=== PATIENT | female | born 1990 | race African-American/Black ===

== ENCOUNTER 2017-04-19 20:25 | Emergency (ER) | payer SELFPAY ==
[~2017-04-19] VITALS: Ht 157.5 cm; Wt 63.5 kg
[~2017-04-19 20:25] MED LIST: CIPRO500 MG PO; DIFLUCAN100 MG ORAL; METRONIDAZOLE500 MG ORAL; NKM; ONDANSETRON ODT4 MG ORAL
[2017-04-19 21:00] VITALS: BP 104/63
--- NOTE | 2017-04-19 21:06 | Emergency Room Report ---
History of Present Illness General Chief Complaint: Female Urogenital Problems Source: Patient Present Illness HPI Patient is a 27-year-old female who presented after increased lower abdominal cramping as well as dysuria. Patient reported increased urinary frequency. Patient reports having increased foul odorous discharge. She denies any fever. She reports having no flank pain. had not been vomiting. She gradual onset of symptoms. Allergies: Coded Allergies: No Known Allergies (Unverified , 08/30/14) Patient History Past Medical History: see triage record Last Menstrual Period: last month Now: No Reviewed Nursing Documentation: PMH: Agreed, PSxH: Agreed Nursing Documentation-PM Past Medical History: No History, Except For Review of Systems All Other Systems: negative except mentioned in HPI Physical Exam Vital Signs Date Time Temp Pulse Resp B/P Pulse Ox O2 Delivery O2 Flow Rate FiO2 04/19/17 20:46 98.2 72 16 104/63 100 Room Air General Appearance: well appearing, no apparent distress, alert, GCS 15 Head: normocephalic, atraumatic ENT: hearing grossly normal, normal voice Neck: full range of motion, supple Respiratory: no respiratory distress, speaking full sentences Gastrointestinal: normal inspection, soft Musculoskeletal: no calf tenderness Neurologic: normal inspection, alert, oriented x3, responsive, archaeology professor III-XII nml as tested, normal gait Psychiatric: mood/affect normal Skin: no rash Medical Decision Making Diagnostic Impression: Primary Impression: UTI (urinary tract infection) Additional Impression: Vaginitis ER Course Patient presented for dysuria. Differential diagnosis included was not limited to appendicitis, urinary tract infection, pelvic inflammatory disease, urethritis, herpes among others.Because of complexity of patient's case laboratory testing were ordered.Urinalysis showed evidence of mild infection. Given the patient's symptomatology. She was treated with oral antibiotics as well as MetroGel. Patient is advised followup with her own physician for further evaluation testing. Labs Test 04/19/17 21:00 Urine Color Yellow Urine Appearance Clear Urine pH 7 (4.5-8.0) Urine Specific [place] 1.015 (1.005-1.035) Urine Protein Negative (NEGATIVE) Urine Glucose (UA) Negative (NEGATIVE) Urine Ketones 1+ (NEGATIVE) Urine Occult Blood Negative (NEGATIVE) Urine Nitrite Negative (NEGATIVE) Urine Bilirubin Negative (NEGATIVE) Urine Urobilinogen 1 MG/DL (0.0-1.0) Urine Leukocyte Esterase 1+ (NEGATIVE) Urine RBC 2-4 /HPF (0 - 2) Urine WBC 5-10 /HPF (0 - 2) Urine Squamous Epithelial Cells Many /LPF (NONE/OCC) Urine Bacteria Few /HPF (NONE) Urine HCG, Qualitative Negative Last Vital Signs Date Time Temp Pulse Resp B/P Pulse Ox O2 Delivery O2 Flow Rate FiO2 04/19/17 20:46 98.2 72 16 104/63 100 Room Air Status: improved Disposition: HOME, SELF-CARE Condition: Stable Scripts Metronidazole* (METROGEL-VAGINAL*) 70 Gm Gel.w.appl 1 APPL VAGIN EVERY 12 HOURS, #70 GM Prov: Abdirahman Fischer 04/19/17 Doxycycline Monohydrate* (DOXYCYCLINE MONOHYDRATE*) 100 Mg Capsule 100 MG ORAL Q12H, #14 CAP 0 Refills Prov: Abdirahman Fischer 04/19/17 Abdirahman Fischer Apr 19, 2017 21:06
[2017-04-19 21:47] LABS: APPEARANCE,URINE CLEAR; KETONES,URINE 1+ (NEGATIVE); LEUKOCYTE ESTERASE ,URINE 1+ (NEGATIVE); NITRITE,URINE NEGATIVE (NEGATIVE); PH,URINE 7 (4.5-8.0); PROTEIN,URINE NEGATIVE (NEGATIVE); UROBILINOGEN,URINE 1 MG/DL (0.0-1.0)
[2017-04-19] MEDS ORDERED: Lidocaine 1% MPF 10mg/ml 5ml INJ ONE (22:00)
[2017-04-19] MEDS ORDERED: DOXYCYCLINE MO100 MG ORAL (22:17)
[2017-04-19] MEDS ORDERED: METROGEL-VAGINA70 G1 VAGIN (22:17)
[2017-04-19 22:30] LABS: BACTERIA,URINE FEW /HPF; SQUAMOUS EPITHELIAL CELL,UR MANY /LPF (NONE/OCC)
[2017-04-19 22:50] VITALS: BP 108/65
== END 2017-04-19 22:50 | disposition home or self-care (01) ==
LOC: EMR 21:17
DX: N39.0 Urinary tract infection, site not specified (principal); N76.0 Acute vaginitis
CPT/HCPCS: 81003; 81025; 96372; 99284; J0696

== ENCOUNTER 2017-05-08 15:37 | Emergency (ER) | payer SELFPAY ==
[~2017-05-08] VITALS: Ht 157.5 cm; Wt 63.5 kg
[~2017-05-08 15:37] MED LIST changes: +DOXYCYCLINE MO100 MG ORAL; +METROGEL-VAGINA70 G1 VAGIN
[2017-05-08 15:46] VITALS: BP 125/74
[2017-05-08] MEDS ORDERED: Famotidine 20 MG/ 2ML VIAL IVP ONE (16:15)
[2017-05-08 16:26] LABS: BASOPHILS % (AUTO) 1.4 % (0.0-2.0); EOSINOPHILS % (AUTO) 1.4 % (0.0-3.0); LYMPHOCYTES % (AUTO) 40.2 % (20.0-45.0); MEAN CORPUSCULAR HGB CONC 31.5 G/DL (32.0-36.0); MEAN CORPUSCULAR VOLUME 83 FL (80-99); MEAN PLATELET VOLUME 6.1 FL (6.5-10.1); PLATELET COUNT 300 K/UL (150-450); RED CELL DISTRIBUTION WIDTH 12.1 % (11.6-14.8); WHITE BLOOD COUNT 4.9 K/UL (4.8-10.8)
[2017-05-08 16:30] LABS: APPEARANCE,URINE CLEAR; KETONES,URINE NEGATIVE (NEGATIVE); LEUKOCYTE ESTERASE ,URINE 1+ (NEGATIVE); NITRITE,URINE NEGATIVE (NEGATIVE); PH,URINE 8 (4.5-8.0); PROTEIN,URINE NEGATIVE (NEGATIVE); UROBILINOGEN,URINE NORMAL MG/DL (0.0-1.0)
[2017-05-08 16:44] LABS: ALANINE AMINOTRANSFERASE 24 U/L (3-33); ALBUMIN/GLOBULIN RATIO 1.6 (1.0-2.7); ANION GAP 11 (5-15); ASPARTATE AMINO TRANSFERASE 25 U/L (5-40); CALCIUM 9.3 mg/dL (8.6-10.2); CARBON DIOXIDE 27 mEQ/L (20-30); CHLORIDE 100 mEQ/L (98-107); CREATININE 0.8 mg/dL (0.5-0.9); GLOMERULAR FILTRATION RATE > 60 mL/min (>60); HEMOLYSIS 3; LIPASE 32 U/L (< 60); POTASSIUM 3.6 mEQ/L (3.4-4.9); SODIUM 138 mEQ/L (135-145); TOTAL PROTEIN 7.8 g/dL (6.6-8.7)
[2017-05-08 17:04] LABS: RBC,URINE 0-2 /HPF (0 - 2)
[2017-05-08 17:05] LABS: BACTERIA,URINE FEW /HPF; SQUAMOUS EPITHELIAL CELL,UR FEW /LPF (NONE/OCC)
[2017-05-08] MEDS ORDERED: CIPROFLOXACIN500 M2 ORAL (17:41)
[2017-05-08] MEDS ORDERED: ZOFRAN ODT4 MG ORAL (17:41)
[2017-05-08] MEDS ORDERED: RANITIDINE HCL150 MG ORAL (17:41)
--- NOTE | 2017-05-08 18:41 | Emergency Room Report ---
History of Present Illness General Chief Complaint: Nausea, Vomiting, and Diarrhea Source: Patient Present Illness HPI 27-year-old female presents ED complaining of lower abdominal pain with vomiting and diarrhea. Notes having the diarrhea for the last 6 weeks on and off. Patient denies any recent travel. States that she recently was prescribed antibiotics for UTI. Denies fevers chills. Pain is cramping, 8/10, nonradiating. No other aggravating or leading factors. Denies any other associated symptoms Allergies: Coded Allergies: No Known Allergies (Unverified , 08/30/14) Patient History Past Medical History: none Past Surgical History: none Pertinent Family History: none Social History: Denies: alcohol use, drug use, smoking Last Menstrual Period: 04/19/17 Now: No Immunizations: UTD Reviewed Nursing Documentation: PMH: Agreed, PSxH: Agreed Nursing Documentation-PMH Past Medical History: No Stated History Review of Systems All Other Systems: negative except mentioned in HPI Physical Exam Vital Signs Date Time Temp Pulse Resp B/P Pulse Ox O2 Delivery O2 Flow Rate FiO2 05/08/17 15:40 97.5 67 14 125/74 99 Room Air Sp02 EP Interpretation: reviewed, normal General Appearance: no apparent distress, alert, GCS 15, non-toxic Head: normocephalic, atraumatic Eyes: bilateral eye PERRL, bilateral eye normal inspection ENT: hearing grossly normal, normal pharynx, no angioedema, normal voice Neck: full range of motion, supple/symm/no masses Respiratory: chest non-tender, lungs clear, normal breath sounds, speaking full sentences Cardiovascular #1: regular rate, rhythm, no edema Cardiovascular #2: 2+ carotid (R), 2+ carotid (L), 2+ radial (R), 2+ radial (L) , 2+ dorsalis pedis (R), 2+ dorsalis pedis (L) Gastrointestinal: normal bowel sounds, non tender, soft, non-distended, no guarding, no rebound Rectal: deferred Genitourinary: normal inspection, no CVA tenderness Musculoskeletal: back normal, gait/station normal, normal range of motion, non- tender Neurologic: alert, oriented x3, responsive, motor strength/tone normal, sensory intact, speech normal Psychiatric: judgement/insight normal, memory normal, mood/affect normal, no suicidal/homicidal ideation Reflexes: 3+ bicep (R), 3+ bicep (L), 3+ tricep (R), 3+ tricep (L), 3+ knee (R) , 3+ knee (L) Skin: normal color, no rash, warm/dry, well hydrated Lymphatic: no adenopathy Medical Decision Making Diagnostic Impression: Primary Impression: Gastroenteritis and colitis, viral ER Course Hospital Course 27-year-old F presents to ED with cramping abdominal pain with vomiting, diarrhea differential diagnosis: gastritis, SBO, cholecystits, gastroenteritis Clinical course Patient placed on stretcher. On cardiac cath tech. After initial history and physical I ordered labs, IV fluids, Zofran and pepcid Labs - no leukocytosis, electrolytes ok, LFTs normal, UA unremarkable Upon reassessment, patient states pain has improved. findings consistent with gastroenteritis. Given symptoms persisting for 6 weeks with recent antibiotic use, we will prescribe cipro I feel this is a highly complex case requiring extensive working including EKG/ Rhythm strip, Xray/CT/US, Blood/urine lab work, repeat exams while in ED, and administration of strong opiates/narcotics for pain control, admission to hospital or close patient follow up. Diagnosis - gastroenteritis and colitis Stable and discharged to home with prescriptions for Zantac, zofran, Cipro. Followup with PMD. Return to ED if symptoms recur or worsen Labs Test 05/08/17 16:07 White Blood Count 4.9 K/UL (4.8-10.8) Red Blood Count 4.90 M/UL (4.20-5.40) Hemoglobin 12.7 G/DL (12.0-16.0) Hematocrit 40.5 % (37.0-47.0) Mean Corpuscular Volume 83 FL (80-99) Mean Corpuscular Hemoglobin 26.0 PG (27.0-31.0) Mean Corpuscular Hemoglobin Concent 31.5 G/DL (32.0-36.0) Red Cell Distribution Width 12.1 % (11.6-14.8) Platelet Count 300 K/UL (150-450) Mean Platelet Volume 6.1 FL (6.5-10.1) Neutrophils (%) (Auto) 51.0 % (45.0-75.0) Lymphocytes (%) (Auto) 40.2 % (20.0-45.0) Monocytes (%) (Auto) 6.0 % (1.0-10.0) Eosinophils (%) (Auto) 1.4 % (0.0-3.0) Basophils (%) (Auto) 1.4 % (0.0-2.0) Urine Color Pale yellow Urine Appearance Clear Urine pH 8 (4.5-8.0) Urine Specific [place] 1.010 (1.005-1.035) Urine Protein Negative (NEGATIVE) Urine Glucose (UA) Negative (NEGATIVE) Urine Ketones Negative (NEGATIVE) Urine Occult Blood Negative (NEGATIVE) Urine Nitrite Negative (NEGATIVE) Urine Bilirubin Negative (NEGATIVE) Urine Urobilinogen Normal MG/DL (0.0-1.0) Urine Leukocyte Esterase 1+ (NEGATIVE) Urine RBC 0-2 /HPF (0 - 2) Urine WBC 2-4 /HPF (0 - 2) Urine Squamous Epithelial Cells Few /LPF (NONE/OCC) Urine Bacteria Few /HPF (NONE) Urine HCG, Qualitative Negative Sodium Level 138 mEQ/L (135-145) Potassium Level 3.6 mEQ/L (3.4-4.9) Chloride Level 100 mEQ/L (98-107) Carbon Dioxide Level 27 mEQ/L (20-30) Anion Gap 11 (5-15) Blood Urea Nitrogen 14 mg/dL (7-23) Creatinine 0.8 mg/dL (0.5-0.9) Estimat Glomerular Filtration Rate > 60 mL/min (>60) Glucose Level 85 mg/dL (74-106) Calcium Level 9.3 mg/dL (8.6-10.2) Total Bilirubin 0.7 mg/dL (0.0-1.2) Aspartate Amino Transf (AST/SGOT) 25 U/L (5-40) Alanine Aminotransferase (ALT/SGPT) 24 U/L (3-33) Alkaline Phosphatase 38 U/L (35-104) Total Protein 7.8 g/dL (6.6-8.7) Albumin 4.8 g/dL (3.5-5.2) Globulin 3.0 g/dL Albumin/Globulin Ratio 1.6 (1.0-2.7) Lipase 32 U/L (< 60) Last Vital Signs Date Time Temp Pulse Resp B/P Pulse Ox O2 Delivery O2 Flow Rate FiO2 05/08/17 15:46 97.5 14 125/74 99 Room Air 05/08/17 15:40 67 Status: improved Disposition: HOME, SELF-CARE Condition: Stable Scripts Ciprofloxacin Hcl* (CIPROFLOXACIN HCL*) 500 Mg Tablet 500 MG ORAL Q12H, #14 TAB 0 Refills Prov: YULIA JAIMES M.D. 05/08/17 Ondansetron Odt* (ZOFRAN ODT*) 4 Mg Tab.rapdis 4 MG ORAL Q6H Y for Nausea & Vomiting, #30 TAB 0 Refills Prov: YULIA JAIMES M.D. 05/08/17 Ranitidine Hcl* (ZANTAC*) 150 Mg Tablet 150 MG ORAL TWICE A DAY, #30 TAB Prov: YULIA JAIMES M.D. 05/08/17 Patient Instructions: Colitis YULIA JAIMES M.D. May 08, 2017 18:41
[2017-05-08 18:55] VITALS: BP 128/75
[2017-05-08 18:56] VITALS: BP 125/74
== END 2017-05-08 18:59 | disposition home or self-care (01) ==
LOC: EMR 16:12
DX: K52.9 Noninfective gastroenteritis and colitis, unspecified (principal)
CPT/HCPCS: 36415; 80053; 81003; 81025; 83690; 85025; 96374; 96375; 99284; J2405; S0028

== ENCOUNTER 2017-07-18 20:08 | Emergency (ER) | payer SELFPAY ==
[~2017-07-18] VITALS: Ht 157.5 cm; Wt 63.5 kg
[~2017-07-18 20:08] MED LIST changes: +CIPROFLOXACIN500 M2 ORAL; +RANITIDINE HCL150 MG ORAL; +ZOFRAN ODT4 MG ORAL
[2017-07-18 20:40] LABS: APPEARANCE,URINE CLEAR; KETONES,URINE 2+ (NEGATIVE); LEUKOCYTE ESTERASE ,URINE 2+ (NEGATIVE); NITRITE,URINE NEGATIVE (NEGATIVE); PH,URINE 6 (4.5-8.0); PROTEIN,URINE NEGATIVE (NEGATIVE); UROBILINOGEN,URINE NORMAL MG/DL (0.0-1.0)
--- NOTE | 2017-07-18 20:48 | Emergency Room Report ---
History of Present Illness General Chief Complaint: Abdominal Pain Source: Patient Present Illness HPI 27YOF with suprapubic pain and dysuria for 2 weeks. Denies fever/chills, flank pain, nausea/vomiting, previous abd/pelvic surgery. C/o white vaginal discharge has one sexual partner Has had BV before - feels similar. Improved with PO flagyl Allergies: Coded Allergies: No Known Allergies (Unverified , 08/30/14) Patient History Past Medical History: none, other - BV Past Surgical History: none Pertinent Family History: none Social History: Denies: smoking, alcohol use, drug use Last Menstrual Period: jun 20 Now: No : 2 Immunizations: UTD Reviewed Nursing Documentation: PMH: Agreed, PSxH: Agreed Nursing Documentation-PMH Past Medical History: No Stated History Review of Systems All Other Systems: negative except mentioned in HPI Physical Exam Vital Signs Date Time Temp Pulse Resp B/P (MAP) Pulse Ox O2 Delivery O2 Flow Rate FiO2 07/18/17 20:10 97.9 69 18 104/66 98 Room Air Sp02 EP Interpretation: reviewed, normal General Appearance: normal inspection, well appearing, no apparent distress, alert, GCS 15, non-toxic Head: normocephalic, atraumatic Eyes: bilateral eye PERRL, bilateral eye EOMI ENT: normal ENT inspection, hearing grossly normal, normal pharynx, no angioedema, normal voice Neck: normal inspection, full range of motion, supple, no bony tend Respiratory: normal inspection, lungs clear, normal breath sounds, no respiratory distress, no retraction, no wheezing Cardiovascular #1: regular rate, rhythm, no edema Gastrointestinal: normal inspection, normal bowel sounds, non tender, soft, no guarding, no hernia Genitourinary: no CVA tenderness, other - pelvi done with DOT Yang. White discharge. Not foul smelling. Musculoskeletal: normal inspection, back normal, normal range of motion, Miguelina' s Sign negative Neurologic: normal inspection, alert, responsive, speech normal Psychiatric: normal inspection, judgement/insight normal, mood/affect normal Skin: normal inspection, normal color, no rash Medical Decision Making Diagnostic Impression: Primary Impression: Dysuria Additional Impression: Sore throat ER Course Urine preg negative UA: With squams and bacteria, likely BV vs UTI Abx Flagyl given Urine Cx negative DC home Last Vital Signs Date Time Temp Pulse Resp B/P (MAP) Pulse Ox O2 Delivery O2 Flow Rate FiO2 07/18/17 20:10 97.9 69 18 104/66 98 Room Air Status: improved Disposition: HOME, SELF-CARE Scripts Metronidazole* (FLAGYL*) 500 Mg Tablet 500 MG ORAL TID for 7 Days, #21 TAB Prov: RANDY BOOKER M.D. 07/18/17 Nitrofurantoin Monohyd/M-Cryst* (MACROBID 100 MG*) 100 Mg Capsule 100 MG ORAL EVERY 12 HOURS for 7 Days, #14 CAP Prov: RANDY BOOKER M.D. 07/18/17 RANDY BOOKER M.D. Jul 18, 2017 20:48
[2017-07-18 20:51] LABS: AMORPHOUS SEDIMENT,UR FEW /LPF; BACTERIA,URINE MODERATE /HPF; SQUAMOUS EPITHELIAL CELL,UR MODERATE /LPF (NONE/OCC)
[2017-07-18] MEDS ORDERED: NITROFURANTOIN100 M2 ORAL (21:05)
[2017-07-18] MEDS ORDERED: METRONIDAZOLE500 MG ORAL (21:21)
[2017-07-18 22:01] VITALS: BP 104/66
== END 2017-07-18 22:04 | disposition home or self-care (01) ==
LOC: EMR 20:53
DX: R30.0 Dysuria (principal); J02.9 Acute pharyngitis, unspecified
CPT/HCPCS: 81003; 81025; 87086; 99283

== ENCOUNTER 2017-12-03 15:04 | Emergency (ER) | payer SELFPAY ==
[~2017-12-03] VITALS: Ht 157.5 cm; Wt 63.5 kg
[~2017-12-03 15:04] MED LIST changes: +NITROFURANTOIN100 M2 ORAL
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
[2017-12-03 15:25] VITALS: BP 118/61
[2017-12-03 15:37] LABS: APPEARANCE,URINE CLEAR; BILIRUBIN, URINE NEGATIVE (NEGATIVE); GLUCOSE, URINE (UA) NEGATIVE (NEGATIVE); KETONES,URINE NEGATIVE (NEGATIVE); LEUKOCYTE ESTERASE ,URINE 1+ (NEGATIVE); NITRITE,URINE NEGATIVE (NEGATIVE); PH,URINE 6 (4.5-8.0); PROTEIN,URINE NEGATIVE (NEGATIVE); UROBILINOGEN,URINE NORMAL MG/DL (0.0-1.0)
[2017-12-03 15:38] LABS: COLOR,URINE YELLOW
[2017-12-03] MEDS ORDERED: METHOCARBAMOL500 MG ORAL (15:43)
[2017-12-03] MEDS ORDERED: TYLENOL EXTRA500 MG ORAL (15:43)
[2017-12-03 16:01] VITALS: BP 118/61
== END 2017-12-03 16:00 | disposition home or self-care (01) ==
LOC: EMR 15:50
DX: M54.5 Low back pain (principal); V49.50XA Passenger injured in collision with unspecified motor vehicles in traffic accident, initial encounter; Y92.410 Unspecified street and highway as the place of occurrence of the external cause
CPT/HCPCS: 81003; 99284

== ENCOUNTER 2019-07-08 19:21 | Emergency (ER) | payer BC ==
[~2019-07-08] VITALS: Ht 157.5 cm; Wt 77.1 kg
[~2019-07-08 19:21] MED LIST changes: +METHOCARBAMOL500 MG ORAL; +TYLENOL EXTRA500 MG ORAL
[2019-07-08 19:30] VITALS: BP 126/72
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
[2019-07-08] MEDS ORDERED: Acetaminophen 500mg (ES) tab ORAL ONE (19:45)
--- NOTE | 2019-07-08 19:52 | NUR ---
ED Nurse Note: urine sample and blood sample sent to lab
[2019-07-08 19:55] LABS: BASOPHILS % (AUTO) 1.3 % (0.0-2.0); EOSINOPHILS % (AUTO) 0.4 % (0.0-3.0); HEMATOCRIT 42.5 % (37.0-47.0); HEMOGLOBIN 13.3 G/DL (12.0-16.0); LYMPHOCYTES % (AUTO) 40.8 % (20.0-45.0); MEAN CORPUSCULAR VOLUME 79 FL (80-99); MONOCYTES % (AUTO) 8.7 % (1.0-10.0); NEUTROPHILS % (AUTO) 48.8 % (45.0-75.0); PLATELET COUNT 301 K/UL (150-450); RED CELL DISTRIBUTION WIDTH 10.7 % (11.6-14.8); WHITE BLOOD COUNT 6.1 K/UL (4.8-10.8)
--- NOTE | 2019-07-08 19:56 | Emergency Room Report ---
History of Present Illness General Chief Complaint: Back Pain-No Injury Source: Patient Present Illness HPI 29-year-old female G4 A3, 8 weeks presents with right flank pain described as achy that radiates down her right leg x5 days no fever no chills no dysuria, aggravated with movement alleviated with rest, severity is mild intermittent, patient denies any vaginal bleeding. Patient presents for evaluation No bowel bladder retention/incontinence, no perineal numbness Allergies: Coded Allergies: No Known Allergies (Unverified , 08/30/14) Patient History Past Medical History: see triage record Last Menstrual Period: 05/18/19 Now: Yes : 3 Reviewed Nursing Documentation: PMH: Agreed; PSxH: Agreed Nursing Documentation-PMH Past Medical History: No Stated History Review of Systems All Other Systems: negative except mentioned in HPI Physical Exam Vital Signs Date Time Temp Pulse Resp B/P (MAP) Pulse Ox O2 Delivery O2 Flow Rate FiO2 07/08/19 19:23 98.2 83 17 121/72 (88) 98 Room Air Sp02 EP Interpretation: reviewed, normal General Appearance: well appearing, no apparent distress, alert Head: normocephalic, atraumatic Eyes: bilateral eye PERRL, bilateral eye EOMI ENT: uvula midline, moist mucus membranes Neck: supple, thyroid normal, supple/symm/no masses Respiratory: lungs clear, no respiratory distress, no retraction, no accessory muscle use Cardiovascular #1: normal peripheral pulses, regular rate, rhythm, no edema, no gallop, no murmur Gastrointestinal: non tender, soft, no guarding, no rebound Musculoskeletal: normal inspection, other - Right flank tender to palpation, no CVA tenderness Neurologic: alert, oriented x3 Psychiatric: mood/affect normal Skin: no rash, warm/dry Medical Decision Making Diagnostic Impression: Primary Impression: Back pain Qualified Codes: M54.41 - Lumbago with sciatica, right side Additional Impressions: UTI (urinary tract infection) Qualified Codes: N30.00 - Acute cystitis without hematuria Qualified Codes: Z3A.01 - Less than 8 weeks gestation of ER Course 29-year-old female presents with right flank pain, most likely musculoskeletal, no fever no chills no dysuria, low suspicion for pyelonephritis, no CVA tenderness when tapped. Patient with a single IUP no acute processes on ultrasound Will provide patient with antibiotics here and antibiotics on discharge Patient states she will follow-up with an [facility] Return precautions discussed Laboratory Tests Test 07/08/19 19:40 White Blood Count 6.1 K/UL (4.8-10.8) Red Blood Count 5.40 M/UL (4.20-5.40) Hemoglobin 13.3 G/DL (12.0-16.0) Hematocrit 42.5 % (37.0-47.0) Mean Corpuscular Volume 79 FL (80-99) L Mean Corpuscular Hemoglobin 24.7 PG (27.0-31.0) L Mean Corpuscular Hemoglobin Concent 31.3 G/DL (32.0-36.0) L Red Cell Distribution Width 10.7 % (11.6-14.8) L Platelet Count 301 K/UL (150-450) Mean Platelet Volume 5.8 FL (6.5-10.1) L Neutrophils (%) (Auto) 48.8 % (45.0-75.0) Lymphocytes (%) (Auto) 40.8 % (20.0-45.0) Monocytes (%) (Auto) 8.7 % (1.0-10.0) Eosinophils (%) (Auto) 0.4 % (0.0-3.0) Basophils (%) (Auto) 1.3 % (0.0-2.0) Urine Color Yellow Urine Appearance Cloudy Urine pH 6 (4.5-8.0) Urine Specific [place] 1.015 (1.005-1.035) Urine Protein Negative (NEGATIVE) Urine Glucose (UA) Negative (NEGATIVE) Urine Ketones 2+ (NEGATIVE) H Urine Blood 1+ (NEGATIVE) H Urine Nitrite Positive (NEGATIVE) H Urine Bilirubin Negative (NEGATIVE) Urine Urobilinogen Normal MG/DL (0.0-1.0) Urine Leukocyte Esterase 1+ (NEGATIVE) H Urine RBC 2-4 /HPF (0 - 2) H Urine WBC 5-10 /HPF (0 - 2) H Urine Squamous Epithelial Cells Many /LPF (NONE/OCC) H Urine Bacteria Many /HPF (NONE) H Sodium Level 134 MMOL/L (136-145) L Potassium Level 3.4 MMOL/L (3.5-5.1) L Chloride Level 101 MMOL/L (98-107) Carbon Dioxide Level 23 MMOL/L (21-32) Anion Gap 10 mmol/L (5-15) Blood Urea Nitrogen 9 mg/dL (7-18) Creatinine 0.7 MG/DL (0.55-1.30) Estimate Glomerular Filtration Rate > 60 mL/min (>60) Glucose Level 91 MG/DL (74-106) Calcium Level 9.2 MG/DL (8.5-10.1) Total Bilirubin 0.6 MG/DL (0.2-1.0) Aspartate Amino Transferase (AST) 24 U/L (15-37) Alanine Aminotransferase (ALT) 32 U/L (12-78) Alkaline Phosphatase 45 U/L (46-116) L Total Protein 8.3 G/DL (6.4-8.2) H Albumin 4.4 G/DL (3.4-5.0) Globulin 3.9 g/dL Albumin/Globulin Ratio 1.1 (1.0-2.7) Lipase 141 U/L (73-393) Human Chorionic Gonadotropin, Quant 00064 mIU/mL (1-6) H Urine Opiates Screen Negative (NEGATIVE) Urine Barbiturates Screen Negative (NEGATIVE) Phencyclidine (PCP) Screen Negative (NEGATIVE) Urine Amphetamines Screen Negative (NEGATIVE) Urine Benzodiazepines Screen Negative (NEGATIVE) Urine Cocaine Screen Negative (NEGATIVE) Urine Marijuana (THC) Screen Positive (NEGATIVE) H CT/MRI/US Diagnostic Results CT/MRI/US Diagnostic Results : Impression Ultrasound pelvis: Single IUP 6 weeks, heart rate 150 Procedure: US OB 1st Trimester Indication: Pelvic pain, positive test Technique: Transabdominal and transvaginal images of the pelvis. Doppler interrogation of the ovaries Comparison: 01/26/2017 Findings: Uterus measures 9.3 cm length by 5.2 cm AP. Within the endometrium, there is a gestational sac. This demonstrates a yolk sac. There is a pole, demonstrating positive heart activity with a heart rate of 150 bpm. [place]- rump length is 5 mm, corresponding to an estimated gestational age of 6 weeks 2 days. There is some heterogeneity to the adjacent endometrium in the lower uterine segment without discrete focal abnormality. The right ovary measures 3.5 cm length. The left ovary measures 2.7 cm length. Normal blood flow demonstrated on Doppler imaging. No ovarian or adnexal mass demonstrated. No free cul-de-sac fluid Impression: 6 week 2 day, by crown-rump length measurement, single live intrauterine . Slightly heterogeneous adjacent echogenicity of doubtful significance. No unusual features otherwise This agrees with the preliminary interpretation provided overnight by Dr. Jack Dictated By: López Mireles MD Electronically Signed By: López Mireles MD Signed Date/Time 07/09/19 1203 CC: Sarabjit Jackson MD Last Vital Signs Date Time Temp Pulse Resp B/P (MAP) Pulse Ox O2 Delivery O2 Flow Rate FiO2 07/08/19 19:23 98.2 83 17 121/72 (88) 98 Room Air Disposition: HOME, SELF-CARE Condition: Stable Scripts Cephalexin* (CEPHALEXIN*) 500 Mg Tablet 500 MG ORAL EVERY 6 HOURS for 10 Days, #40 CAP Prov: Sarabjit Jackson MD 07/08/19 Referrals: [facility] Patient Instructions: Abdominal Pain During , [id number], Back Pain , Adult, Urinary Tract Infection, [id number] Additional Instructions: The patient was provided with discharge instructions, notified to follow-up with a primary care doctor and or specialist in the next 24-48 hours, and to return to the ED if they have worsening of their symptoms. Please note that this report is being documented using B[employer] technology. This can lead to erroneous entry secondary to incorrect interpretation by the dictating instrument. Sarabjit Jackson MD Jul 08, 2019 19:56
--- NOTE | 2019-07-08 19:58 | NUR ---
ED Nurse Note: pt went down for Ultrasound
[2019-07-08 20:10] LABS: ANION GAP 10 mmol/L (5-15); BLOOD UREA NITROGEN 9 mg/dL (7-18); CALCIUM 9.2 MG/DL (8.5-10.1); CARBON DIOXIDE 23 MMOL/L (21-32); CHLORIDE 101 MMOL/L (98-107); CREATININE 0.7 MG/DL (0.55-1.30); POTASSIUM 3.4 MMOL/L (3.5-5.1); SODIUM 134 MMOL/L (136-145)
[2019-07-08 20:11] LABS: COLOR,URINE YELLOW
[2019-07-08 20:12] LABS: APPEARANCE,URINE CLOUDY; BILIRUBIN, URINE NEGATIVE (NEGATIVE); GLUCOSE, URINE (UA) NEGATIVE (NEGATIVE); KETONES,URINE 2+ (NEGATIVE); LEUKOCYTE ESTERASE ,URINE 1+ (NEGATIVE); NITRITE,URINE POSITIVE (NEGATIVE); PH,URINE 6 (4.5-8.0); PROTEIN,URINE NEGATIVE (NEGATIVE); UROBILINOGEN,URINE NORMAL MG/DL (0.0-1.0)
[2019-07-08 20:16] LABS: ALANINE AMINOTRANSFERASE 32 U/L (12-78); ALBUMIN 4.4 G/DL (3.4-5.0); ALBUMIN/GLOBULIN RATIO 1.1 (1.0-2.7); ALKALINE PHOSPHATASE 45 U/L (46-116); ASPARTATE AMINO TRANSFERASE 24 U/L (15-37); BILIRUBIN,TOTAL 0.6 MG/DL (0.2-1.0)
[2019-07-08] MEDS ORDERED: CEPHALEXIN500 M1 ORAL (20:36)
[2019-07-08] MEDS ORDERED: cefTRIAXone 1 GM in NS 55 ML IVPB ONE (20:45)
--- NOTE | 2019-07-08 21:00 | NUR ---
ED Nurse Note: returned back from US
[2019-07-08 21:20] VITALS: BP 130/72
--- NOTE | 2019-07-08 21:20 | NUR ---
ER DISCHARGE NOTE: Patient is cleared to be discharged per ERMD, pt is aox4, on room air, with stable vital signs. pt was given dc and prescription instructions, pt was able to verbalize understanding, pt id band and iv site removed without complications. pt is able to ambulate with steady gait. pt took all belongings.
--- NOTE | 2019-07-09 12:09 | Diagnostic Imaging Report ---
Indication: Pelvic pain, positive test Technique: Transabdominal and transvaginal images of the pelvis. Doppler interrogation of the ovaries Comparison: 01/26/2017 Findings: Uterus measures 9.3 cm length by 5.2 cm AP. Within the endometrium, there is a gestational sac. This demonstrates a yolk sac. There is a pole, demonstrating positive heart activity with a heart rate of 150 bpm. [place]-rump length is 5 mm, corresponding to an estimated gestational age of 6 weeks 2 days. There is some heterogeneity to the adjacent endometrium in the lower uterine segment without discrete focal abnormality. The right ovary measures 3.5 cm length. The left ovary measures 2.7 cm length. Normal blood flow demonstrated on Doppler imaging. No ovarian or adnexal mass demonstrated. No free cul-de-sac fluid Impression: 6 week 2 day, by crown-rump length measurement, single live intrauterine . Slightly heterogeneous adjacent echogenicity of doubtful significance. No unusual features otherwise This agrees with the preliminary interpretation provided overnight by Dr. Jack
== END 2019-07-08 21:20 | disposition home or self-care (01) ==
LOC: EMR 20:40
DX: O26.891 Other specified pregnancy related conditions, first trimester (principal); M54.41 Lumbago with sciatica, right side; O23.11 Infections of bladder in pregnancy, first trimester; Z3A.01 Less than 8 weeks gestation of pregnancy
CPT/HCPCS: 36415; 76801; 76830; 80053; 80307; 81003; 83690; 84702; 85025; 86850; 86900; 86901; 87086; 96365; 99284; J0696

== ENCOUNTER 2019-08-01 15:11 | Emergency (ER) | payer BC ==
[~2019-08-01] VITALS: Ht 157.5 cm; Wt 70.8 kg
[~2019-08-01 15:11] MED LIST changes: +CEPHALEXIN500 M1 ORAL
--- NOTE | 2019-08-01 15:20 | NUR ---
ED Nurse Note: Patient walked into ED from home c/o spotting of pinkish light red blood, small amount since this morning. patient reports she is 10 weeks . patient reports backache, denies abdominal cramping. patient reports 4 para 0.
--- NOTE | 2019-08-01 15:59 | Emergency Room Report ---
History of Present Illness General Chief Complaint: Complications Source: Patient Present Illness HPI 29-year-old female who is G4 83 here complaining of 1 day of vaginal spotting. Patient reports that she is 10 weeks and last OB visit was a week ago and within normal limits. Patient is currently taking vitamins. Patient was recently seen at [facility] for similar issue on July 08, 2019, was diagnosed with urinary tract infection, and given Keflex. However patient reports that she did not want to take medication 4 times a day and she skipped some doses and has not yet finished antibiotics. Patient reports that she started wiping herself this morning where she saw spotting noted on the toilet paper however no active bleeding or clotting. Denies any cramping, syncope, chest pain, shortness of breath, palpitation, fever and chills, and excess nausea and vomiting. Has not taken any medication for symptom relief. Patient has only been taking Tylenol for back pain the past few days. Denies any fall or injury or strenuous physical activity. Patient sitting comfortably with stable vital signs. Reports that the last 3 abortions were selected and all under 10 weeks. Last was done 2-1/2 years ago. Patient denies smoking , marijuana use, alcohol intake. Allergies: Coded Allergies: No Known Allergies (Unverified , 08/30/14) Patient History Past Medical History: see triage record Past Surgical History: unable to obtain Pertinent Family History: none Now: Yes - 10 weeks Immunizations: UTD Reviewed Nursing Documentation: PMH: Agreed; PSxH: Agreed Nursing Documentation-PMH Past Medical History: No History, Except For Review of Systems All Other Systems: negative except mentioned in HPI Physical Exam Vital Signs Date Time Temp Pulse Resp B/P (MAP) Pulse Ox O2 Delivery O2 Flow Rate FiO2 08/01/19 15:16 97.9 83 17 115/75 (88) 98 Room Air Sp02 EP Interpretation: reviewed, normal General Appearance: no apparent distress, alert, GCS 15, non-toxic Head: normocephalic, atraumatic Eyes: bilateral eye normal inspection, bilateral eye PERRL ENT: hearing grossly normal, normal pharynx, no angioedema, normal voice, TMs + canals normal Neck: full range of motion, supple, thyroid normal, supple/symm/no masses Respiratory: chest non-tender, lungs clear, normal breath sounds, no rhonchi, no wheezing, speaking full sentences Cardiovascular #1: regular rate, rhythm, no edema, no murmur, normal capillary refill Cardiovascular #2: 2+ radial (R), 2+ radial (L), 2+ dorsalis pedis (R), 2+ dorsalis pedis (L) Gastrointestinal: normal bowel sounds, non tender, soft, non-distended, no guarding, no rebound Genitourinary: no CVA tenderness Musculoskeletal: back normal, gait/station normal, normal range of motion, non- tender, no calf tenderness Neurologic: alert, oriented x3, responsive, motor strength/tone normal, sensory intact, speech normal Psychiatric: judgement/insight normal, memory normal, mood/affect normal, no suicidal/homicidal ideation Skin: no rash Lymphatic: no adenopathy Medical Decision Making PA Attestation All diagnoses and treatment plans were reviewed and discussed with my supervising physician Dr. Perez Diagnostic Impression: Primary Impression: Vaginal bleeding during Additional Impression: UTI (urinary tract infection) during ER Course 29-year-old female who is G4 83 here complaining of 1 day of vaginal spotting. Patient reports that she is 10 weeks and last OB visit was a week ago and within normal limits. Patient is currently taking vitamins. Patient was recently seen at [facility] for similar issue on July 08, 2019, was diagnosed with urinary tract infection, and given Keflex. However patient reports that she did not want to take medication 4 times a day and she skipped some doses and has not yet finished antibiotics. Patient reports that she started wiping herself this morning where she saw spotting noted on the toilet paper however no active bleeding or clotting. Denies any cramping, syncope, chest pain, shortness of breath, palpitation, fever and chills, and excess nausea and vomiting. Has not taken any medication for symptom relief. Patient has only been taking Tylenol for back pain the past few days. Denies any fall or injury or strenuous physical activity. Patient sitting comfortably with stable vital signs. Reports that the last 3 abortions were selected and all under 10 weeks. Last was done 2-1/2 years ago. Patient denies smoking , marijuana use, alcohol intake. Ddx considered but are not limited to: Threatened , spontaneous , complete , sweating during , abdominal pain during , pyelonephritis Vital signs: are WNL, pt. is afebrile H&PE are most consistent with: UTI during , vag bleeding during ORDERS: CBC, CMP, UA, beta-hCG, type and screen, OB ultrasound ED INTERVENTIONS: NS bolus DISCHARGE: At this time pt. is stable for d/c to home. Will provide printed patient care instructions, and any necessary prescriptions. Care plan and follow up instructions have been discussed with the patient prior to discharge. Follow-up with your SPIRAL GEAR GENERATOR in 24 to 48 hours for repeat of ultrasound and beta hCG levels if worsening symptoms return to the emergency room. CT/MRI/US Diagnostic Results CT/MRI/US Diagnostic Results : Imaging Test Ordered: OB ultrasound Impression Within normal limits, heart rate 150, no subchorionic hemorrhage, intrauterine visualized, Last Vital Signs Date Time Temp Pulse Resp B/P (MAP) Pulse Ox O2 Delivery O2 Flow Rate FiO2 08/01/19 15:16 97.9 83 17 115/75 (88) 98 Room Air Disposition: HOME, SELF-CARE Condition: Stable Patient Instructions: Abdominal Pain During , Back Pain in , and Urinary Tract Infection Additional Instructions: Follow-up with your SPIRAL GEAR GENERATOR in 24 to 48 hours for repeat of ultrasound and beta hCG levels if worsening symptoms return to the emergency room. Ksenia Farooq Aug 01, 2019 15:59
[2019-08-01 16:03] LABS: BASOPHILS % (AUTO) 1.7 % (0.0-2.0); EOSINOPHILS % (AUTO) 0.4 % (0.0-3.0); HEMATOCRIT 40.7 % (37.0-47.0); HEMOGLOBIN 12.8 G/DL (12.0-16.0); LYMPHOCYTES % (AUTO) 35.1 % (20.0-45.0); MEAN CORPUSCULAR VOLUME 77 FL (80-99); MONOCYTES % (AUTO) 6.7 % (1.0-10.0); NEUTROPHILS % (AUTO) 56.1 % (45.0-75.0); PLATELET COUNT 317 K/UL (150-450); RED CELL DISTRIBUTION WIDTH 10.9 % (11.6-14.8); WHITE BLOOD COUNT 5.6 K/UL (4.8-10.8)
[2019-08-01 16:07] LABS: APPEARANCE,URINE CLEAR; BILIRUBIN, URINE NEGATIVE (NEGATIVE); GLUCOSE, URINE (UA) NEGATIVE (NEGATIVE); KETONES,URINE 3+ (NEGATIVE); LEUKOCYTE ESTERASE ,URINE 1+ (NEGATIVE); NITRITE,URINE NEGATIVE (NEGATIVE); PH,URINE 6 (4.5-8.0); PROTEIN,URINE NEGATIVE (NEGATIVE); UROBILINOGEN,URINE NORMAL MG/DL (0.0-1.0)
[2019-08-01 16:08] LABS: COLOR,URINE YELLOW
[2019-08-01 16:19] LABS: ALANINE AMINOTRANSFERASE 28 U/L (12-78); ALBUMIN 3.8 G/DL (3.4-5.0); ALBUMIN/GLOBULIN RATIO 1.1 (1.0-2.7); ALKALINE PHOSPHATASE 41 U/L (46-116); ANION GAP 11 mmol/L (5-15); ASPARTATE AMINO TRANSFERASE 17 U/L (15-37); BILIRUBIN,TOTAL 0.5 MG/DL (0.2-1.0); BLOOD UREA NITROGEN 6 mg/dL (7-18); CARBON DIOXIDE 22 MMOL/L (21-32); CHLORIDE 102 MMOL/L (98-107); CREATININE 0.6 MG/DL (0.55-1.30); POTASSIUM 3.5 MMOL/L (3.5-5.1); SODIUM 135 MMOL/L (136-145)
[2019-08-01] MEDS ORDERED: NITROFURANTOIN100 M2 ORAL (16:36)
[2019-08-01 17:12] VITALS: BP 115/75
--- NOTE | 2019-08-01 17:13 | NUR ---
ER DISCHARGE NOTE: Patient is cleared to be discharged per GREGORIO CHARLES, pt is aox4, on room air, with stable vital signs. pt was given dc and prescription instructions, pt was able to verbalize understanding, pt id band and iv site removed without complications. pt is able to ambulate with steady gait. pt took all belongings.
--- NOTE | 2019-08-01 17:37 | Diagnostic Imaging Report ---
PELVIC ULTRASOUND - COMPLETE TRANSABDOMINAL Indication: with pain and spotting. Last menstrual period 05/19/2019 Technique: Grayscale and duplex Doppler imaging of the pelvis performed utilizing a transabdominal scan. Comparison: Pelvic ultrasound dated 07/08/2019 Findings: Patient declined transvaginal examination, which limits evaluation. Uterus measures 13.1 x 5.9 x 13.1 cm There is an intrauterine gestational sac containing an embryo with a crown-rump length of 2.58 cm, corresponding to gestational age of 9 weeks, 3 days. Yolks sac is identified. Heart rate is detected, measuring approximately 155 bpm. Cervix is closed. Right ovary measures 3.9 x 2.2 x 2.3 cm. No masses are identified sonographically. Vascular flow is confirmed with color and spectral Doppler. Left ovary measures 4.3 x 2.5 x 2.3 cm. No masses are identified sonographically. Vascular flow is confirmed by color and spectral Doppler. No free fluid identified. IMPRESSION: Single viable intrauterine with a gestational age of 9 weeks, 3 days compared to a gestational age of 10 weeks, 4 days by last menstrual period.
== END 2019-08-01 17:12 | disposition home or self-care (01) ==
LOC: EMR 16:43
DX: O26.851 Spotting complicating pregnancy, first trimester (principal); O23.41 Unspecified infection of urinary tract in pregnancy, first trimester; Z3A.10 10 weeks gestation of pregnancy
CPT/HCPCS: 36415; 76801; 80053; 81001; 84702; 85025; 86850; 86900; 86901; 96360; 99284

== ENCOUNTER 2019-11-01 16:41 | Emergency (ER) | payer BC ==
[~2019-11-01] VITALS: Ht 157.5 cm; Wt 74.4 kg
[2019-11-01 17:10] VITALS: BP 102/66
--- NOTE | 2019-11-01 17:10 | NUR ---
ED Nurse Note: Pt ambulated to ED d/t episode of syncope after standing up fast x 5 hours ago. Pt denies injury or trauma;no pain; pt is 24 weeks ; VSS, on RA. Placed on bed.
[2019-11-01 18:00] LABS: APPEARANCE,URINE CLEAR; BILIRUBIN, URINE NEGATIVE (NEGATIVE); COLOR,URINE PALE YELLOW; GLUCOSE, URINE (UA) NEGATIVE (NEGATIVE); KETONES,URINE NEGATIVE (NEGATIVE); LEUKOCYTE ESTERASE ,URINE NEGATIVE (NEGATIVE); NITRITE,URINE NEGATIVE (NEGATIVE); PH,URINE 8 (4.5-8.0); PROTEIN,URINE NEGATIVE (NEGATIVE); UROBILINOGEN,URINE NORMAL MG/DL (0.0-1.0)
[2019-11-01 18:21] LABS: BASOPHILS % (AUTO) 0.7 % (0.0-2.0); EOSINOPHILS % (AUTO) 0.1 % (0.0-3.0); HEMATOCRIT 39.6 % (37.0-47.0); LYMPHOCYTES % (AUTO) 18.1 % (20.0-45.0); MEAN CORPUSCULAR VOLUME 82 FL (80-99); MONOCYTES % (AUTO) 4.8 % (1.0-10.0); NEUTROPHILS % (AUTO) 76.3 % (45.0-75.0); PLATELET COUNT 314 K/UL (150-450); RED BLOOD COUNT 4.86 M/UL (4.20-5.40); RED CELL DISTRIBUTION WIDTH 13.8 % (11.6-14.8); WHITE BLOOD COUNT 8.5 K/UL (4.8-10.8)
[2019-11-01 18:40] LABS: ANION GAP 10 mmol/L (5-15); BLOOD UREA NITROGEN 6 mg/dL (7-18); CALCIUM 8.8 MG/DL (8.5-10.1); CARBON DIOXIDE 22 MMOL/L (21-32); CHLORIDE 105 MMOL/L (98-107); CREATININE 0.6 MG/DL (0.55-1.30); POTASSIUM 3.8 MMOL/L (3.5-5.1); SODIUM 137 MMOL/L (136-145)
[2019-11-01 18:45] LABS: ALANINE AMINOTRANSFERASE 27 U/L (12-78); ALBUMIN/GLOBULIN RATIO 0.8 (1.0-2.7); ALKALINE PHOSPHATASE 49 U/L (46-116); ASPARTATE AMINO TRANSFERASE 18 U/L (15-37); BILIRUBIN,TOTAL 0.3 MG/DL (0.2-1.0)
--- NOTE | 2019-11-01 19:04 | NUR ---
HAND-OFF: Report given to DOT Velasquez.
--- NOTE | 2019-11-01 19:07 | NUR ---
ED Nurse Note: Recieved report from Meredith CHRIS.
--- NOTE | 2019-11-01 19:18 | Emergency Room Report ---
History of Present Illness General Chief Complaint: Syncope Source: Patient, Medical Record Present Illness HPI 24-year-old female who is G5, with last miscarriage 5 years ago here reporting that she is 24 weeks and reports near syncope episode 5 hours prior to arrival. Patient significant other reports that patient was sitting in the couch and after eating chicken and few other food felt dizzy and had a near syncope episode and was not responding for a few seconds. Denies head injury. Denies chest pain shortness of breath at this time. Reports that in the past few days she has been standing on her feet a lot and does not feel like she has been hydrating well enough. Denies any vaginal bleeding and spotting. Denies vaginal cramping and abdominal cramping and pain. Has not taken medication for symptom relief. Appears to be stable with stable vital signs. Denies fever and chills. Denies recent URI symptoms or traveling. Denies leg swelling and calf tenderness. Denies pleuritic chest pain. Denies history of blood clot. Denies palpitation at this time. Denies urinary symptoms. Allergies: Coded Allergies: IBUPROFEN (Verified Allergy, Unknown, 11/01/19) Patient History Past Medical History: see triage record Past Surgical History: none Pertinent Family History: none Last Menstrual Period: 2019 Now: Yes - 24 weeks : 4 Para: 0 Immunizations: UTD Reviewed Nursing Documentation: PMH: Agreed; PSxH: Agreed Review of Systems All Other Systems: negative except mentioned in HPI Physical Exam Vital Signs Date Time Temp Pulse Resp B/P (MAP) Pulse Ox O2 Delivery O2 Flow Rate FiO2 11/01/19 17:00 98.2 77 18 102/66 (78) 98 Room Air Sp02 EP Interpretation: reviewed, normal General Appearance: no apparent distress, alert, GCS 15, non-toxic Head: normocephalic, atraumatic Eyes: bilateral eye normal inspection, bilateral eye PERRL ENT: hearing grossly normal, normal pharynx, no angioedema, normal voice Neck: full range of motion, supple/symm/no masses Respiratory: chest non-tender, lungs clear, normal breath sounds, no rhonchi, no wheezing, speaking full sentences Cardiovascular #1: regular rate, rhythm, no edema, no murmur Cardiovascular #2: 2+ carotid (R), 2+ carotid (L), 2+ radial (R), 2+ radial (L) , 2+ dorsalis pedis (R), 2+ dorsalis pedis (L) Gastrointestinal: normal bowel sounds, non tender, soft, no guarding, no rebound, other - gravid Rectal: deferred Genitourinary: no CVA tenderness Musculoskeletal: back normal, no calf tenderness Neurologic: alert, motor strength/tone normal, oriented x3, sensory intact, responsive, speech normal Psychiatric: normal inspection Skin: no rash, palpation normal, normal color Lymphatic: no adenopathy Medical Decision Making PA Attestation All my diagnosis and treatment plans were reviewed ad discussed with my supervising physician Dr. Chong Diagnostic Impression: Primary Impression: Syncope Additional Impression: Dehydration ER Course 24-year-old female who is G5, with last miscarriage 5 years ago here reporting that she is 24 weeks and reports near syncope episode 5 hours prior to arrival. Patient significant other reports that patient was sitting in the couch and after eating chicken and few other food felt dizzy and had a near syncope episode and was not responding for a few seconds. Denies head injury. Denies chest pain shortness of breath at this time. Reports that in the past few days she has been standing on her feet a lot and does not feel like she has been hydrating well enough. Denies any vaginal bleeding and spotting. Denies vaginal cramping and abdominal cramping and pain. Has not taken medication for symptom relief. Appears to be stable with stable vital signs. Denies fever and chills. Denies recent URI symptoms or traveling. Denies leg swelling and calf tenderness. Denies pleuritic chest pain. Denies history of blood clot. Denies palpitation at this time. Denies urinary symptoms. Ddx considered but are not limited to: Ectopic , threatened , spontaneous , abdominal pain during , bleeding during , syncope during , UTI Vital signs: are WNL, pt. is afebrile H&PE are most consistent with: Syncope most likely vasovagal, and dehydration ORDERS: CBC, CMP, UA, type and screen, troponin, EKG, OB ultrasound, UA, Diclegis ED INTERVENTIONS: NS bolus, Zofran DISCHARGE: At this time pt. is stable for d/c to home. Will provide printed patient care instructions, and any necessary prescriptions. Care plan and follow up instructions have been discussed with the patient prior to discharge. Follow-up with your WASHROOM ATTENDANT in 24 to 48 hours, ultrasound and beta-hCG to be repeated. If worsening symptoms, another episode of syncope return to the emergency room. Increase oral hydration. Avoid strenuous physical activity and working long hours. EKG Diagnostic Results Rate: normal Rhythm: NSR ST Segments: no acute changes Other Impression No acute ST changes CT/MRI/US Diagnostic Results CT/MRI/US Diagnostic Results : Imaging Test Ordered: OB US Impression US OB 1st TRIMESTER: IUP in breech presentation measuring 22 weeks 5 days with heart rate of 147 BPM. Anterior-fundal placenta without abruption. Normal RIGOBERTO of 18.5. Closed cervix, 3.1 cm in length. Last Vital Signs Date Time Temp Pulse Resp B/P (MAP) Pulse Ox O2 Delivery O2 Flow Rate FiO2 11/01/19 17:10 98.2 72 18 102/66 98 Room Air Status: improved Disposition: HOME, SELF-CARE Condition: Stable Scripts Doxylamine/Pyridoxine Hcl (IFRAH LUCERO 10-10 MG TABLET) 1 Each Tablet. 1 EACH PO TID, #21 TAB Prov: Ksenia Farooq 11/01/19 Referrals: NON PHYSICIAN (PCP) Patient Instructions: Dehydration, Adult, Vsac-[id number], Syncope Additional Instructions: Follow-up with your WASHROOM ATTENDANT in 24 to 48 hours, ultrasound and beta-hCG to be repeated. If worsening symptoms, another episode of syncope return to the emergency room. Increase oral hydration. Avoid strenuous physical activity and working long hours. Ksenia Farooq Nov 01, 2019 19:18
[2019-11-01] MEDS ORDERED: DICLEGIS DR 101 EACH PO (20:03)
--- NOTE | 2019-11-01 20:12 | Diagnostic Imaging Report ---
Indication: Abdominal pain. female Technique: Grayscale and duplex Doppler imaging of the pelvis performed utilizing a transabdominal scan and endovaginal scan. Comparison: None Findings: Single viable intrauterine demonstrated. presentation is currently breech. Based on sonographic criteria gestational age is estimated at 22 weeks 5 days. heart tones demonstrated. Anterior placenta demonstrated. Amniotic fluid appears appropriate. RIGOBERTO is 18.5 cm. Cervix is closed and measures 3 cm in length. anatomy is not assessed on this examination which is done in the emergency department. A follow-up formal complete OB ultrasound such as a level 2 ultrasound suggested for anatomic assessment. IMPRESSION: Single viable intrauterine 22 weeks 5 days. No acute findings appreciated. Note: A negative ultrasound evaluation does not insure well-being or positive outcome for the . monitoring including a nonstress test may be needed and clinical evaluation by [employer] is highly recommended.
[2019-11-01 20:13] VITALS: BP 102/66
--- NOTE | 2019-11-01 20:14 | NUR ---
ED Nurse Note: Pt cleared by ERMD for discharge. DC instructions/prescription was given and explained to pt and verbalized understanding of teachings. All medical deviecs such as ID band and IV line removed. Pt is AAO x4, ambulatory and left with all personal belongings. Accompanied by her .
== END 2019-11-01 20:13 | disposition home or self-care (01) ==
LOC: EMR 18:05
DX: O26.92 Pregnancy related conditions, unspecified, second trimester (principal); R55 Syncope and collapse; E86.0 Dehydration; Z3A.24 24 weeks gestation of pregnancy; Z88.6 Allergy status to analgesic agent
CPT/HCPCS: 36415; 76805; 80053; 81003; 84484; 84702; 85025; 86850; 86900; 86901; 93005; 96361; 96374; 99284; J2405; J7030